=== PATIENT | male | born 2005 | race Caucasian/White ===

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

== ENCOUNTER → 2023-04-17 12:57 | Outpatient (BNVA) | payer SELFPAY | PROVIDERS: PCP Internal Medicine | DX: Z11.1 Encounter for screening for respiratory tuberculosis (principal) ==

== ENCOUNTER 2023-07-27 13:39 | Outpatient (AMB) | payer OTHER, SELFPAY ==
[2023-07-27 13:41] VITALS: BP 116/70; PULSE 61; O2SAT 97; BMI 29.4
--- NOTE | 2023-07-27 13:41 | A.OFFPC_ITS ---
Vital Signs 07/27/23 13:41 Height 6 ft 2 in Weight 229 lb BMI 29.4 BP 116/70 Blood Pressure Location Lt brachial Position Sitting Pulse 61 Pulse Source Pulse Oximeter Pulse Oximetry (%) 97 Oxygen Delivery Method Room Air Intake Visit Reasons: New patient-Establish Care Lift Truck Operator Required: No Allergies No Known Allergies [No Known Allergies*] Allergy (Verified 07/27/23 13:42) Medication List - Last Reconciled 07/27/23 by Keenan Anand MD multivitamin 1 tab PO DAILY [SEA light 1 cap PO .QD] Tobacco use date assessed: 07/27/23 Dental Screening Dental Screen Date: 07/27/23 Did you have a dental visit in the last 12 months?: Yes Did you have a dental problem in the last 6 months where you did not have access to dental care?: No Was dental information given to patient?: Patient has dentist HPI New patient-Establish Care HPI Details 18-year-old overweight male being seen f or the 1st time. Review of the notes has had an umbilical wound exploration August 2022 with no hernia found but noted extensive scar tissue. Has had a history of umbilical repair in 2019.. Had patellar tendon tear in March 2022. [facility], [facility] Medical History (Updated 07/27/23 @ 14:00 by Keenan Anand MD) COVID-19 vaccine administered No significant medical problems Umbilical hernia Surgical History History of umbilical hernia repair History of circumcision History of tonsillectomy and adenoidectomy Family History (Updated 07/27/23 @ 14:01 by Keenan Anand MD) Mother History of lymphoma Maternal Grandfather CVA (cerebral vascular accident) Maternal Aunt Alcohol abuse Social History (Updated 07/27/23 @ 14:02 by Keenan Anand MD) Are you a primary care worker to a significant other at home: No Do you presently have visiting nurse or other home services: No Alcohol intake: never Patient Tobacco Use Status: Never used Tobacco Second Hand Smoke Exposure: No Current occupational status: employed Current occupation: [employer] Cognitive needs: No Hearing needs: No Vision needs: No Questionnaire PHQ-9 Over the last 2 weeks, how often have you been bothered by any of the following problems? 1. Little interest or pleasure in doing things: not at all 2. Feeling down, depressed, or hopeless: not at all 3. Trouble falling or staying asleep, or sleeping too much: not at all 4. Feeling tired or having little energy: not at all 5. Poor appetite or overeating: not at all 6. Feeling bad about yourself - or that you are a failure or have let yourself or your family down: not at all 7. Trouble concentrating on things, such as reading the newspaper or watching television: not at all 8. Moving or speaking so slowly that other people could have noticed. Or the opposite - being so fidgety or restless that you have been moving around a lot more than usual: not at all 9. Thoughts that you would be better off or of hurting yourself in some way: not at all Total score: 0 Depression Screening Interpretation: Negative Depression Screening Done: Yes Source: Developed by Drs. Binu Landa, Aleyda Henley, Sahil Maradiaga and colleagues, with an educational maurice from [employer]. Thrive Questionnaire Date Thrive assessed: 07/27/23 I am a: Patient What is your living situation today?: I have a steady place to live Within the past 12 months, did the food you bought not last and you didn't have the money to get more?: Never true Within the past 12 months, did you worry whether your food would run out before you got money to buy more?: Never true Do you have trouble paying for medicines?: No Do you have trouble getting transportation to medical appointments?: No Do you have trouble paying your heating and electricity bill?: No Do you have trouble taking care of your child, family member or friend?: No Do you have trouble with day-to-day activities such as bathing, preparing meals, shopping, managing finances, etc.?: No Are you currently unemployed and looking for a job?: No Are you interested in more education?: No Please select the resources that you would like help with: None THRIVE Score: 0 AUDIT C Alcohol Use Questionnaire (AUDIT-C) 1. How often do you have a drink containing alcohol?: Never 3. How often do you have six or more drinks on one occasion?: Never Total Score: 0 KARSON-7 AMB Questionnaire KARSON-7 Date KARSON - 7 assessed: 07/27/23 Feeling nervous, anxious, or on edge: 0 = Not at all Not being able to stop or control worryin = Not at all Worrying too much about different things: 0 = Not at all Trouble relaxin = Not at all Being so restless that it is hard to sit still: 0 = Not at all Becoming easily annoyed or irritable: 0 = Not at all Feeling afraid as if something awful might happen: 0 = Not at all Total KARSON-7 score (0-4 normal; 5-9 mild; 10-14 moderate; 15-21 severe): 0 Source: Developed by Drs. Binu Landa, Aleyda Henley, Sahil Maradiaga and colleagues, with an educational maurice from [employer]. Physical exam (Primary Care) Vital Signs: Last Vital Signs Pulse 61 07/27/23 13:41 BP 116/70 07/27/23 13:41 Pulse Ox 97 07/27/23 13:41 Oxygen Delivery Method Room Air 07/27/23 13:41 BMI result Body Mass Index 29.4 Tobacco/Smoking Status: Tobacco use Status Tobacco use date assessed 07/27/23 07/27/23 13:43 Patient Tobacco Use Status Never used Tobacco 07/27/23 13:43 PHQ-9: PHQ-9 Score PHQ-9: Total score 0 07/27/23 13:43 Depression Screening Interpretation: Negative Thrive Assessment: Date of Thrive Assessment Date Thrive assessed 07/27/23 07/27/23 13:43 Const General: alert; No acute distress Eyes Conjunctivae: conjunctivae normal Resp Auscultation: clear to auscultation bilaterally Cardio Rate: regular rate Rhythm: regular rhythm GI Inspection: Yes normal to inspection Extrem General: Yes normal to inspection and No edema Assessment and Plan Assessment & Plan (1) Overweight (BMI 25.0-29.9): Code(s): E66.3 - Overweight Plan: diet and exercise Orders: Orders Thyroid Stimulating Hormone Today E66.3 - Overweight Vitamin B12 and Folate Today E66.3 - Overweight Complete Blood Count Auto Diff Today E66.3 - Overweight Comprehensive Met. Panel Today E66.3 - Overweight Free T4 (Free Thyroxine) Today E66.3 - Overweight Lipid Panel Today E66.3 - Overweight, E78.00 - Pure hypercholesterolemia, unspecified Coding Level of Care Code New Pt Level 4 (49311) Diagnoses Overweight (BMI 25.0-29.9) E66.3
== END 2023-07-27 16:09 | disposition home or self-care (01) ==
PROVIDERS: PCP Internal Medicine; Visit Provider Internal Medicine
DX: E66.3 Overweight (principal)
CPT/HCPCS: 99204

== ENCOUNTER 2023-07-27 14:10 | Outpatient (REF) | payer OTHER, SELFPAY ==
[2023-07-27 14:24] LABS: MANUAL DIFF FLAG NO
[2023-07-27 14:44] LABS: Basophils Absolute Auto 0.1 X10*3/uL (0.0-0.2); Basophils Percent Auto 1.2 % (0-2); Eosinophils Absolute Auto 0.1 X10*3/uL (0.0-0.4); Eosinophils Percent Auto 1.6 % (0-4); Hematocrit 40.7 % (42.0-52.0); Imm Gran Abs Auto 0.01 X10*3/uL (0.00-0.03); Imm Gran Pct Auto 0.2 % (0.0-0.4); Lymphocytes Absolute Auto 1.6 X10*3/uL (1.2-4.9); Mean Corpuscular HGB Conc 34.4 g/dl (31.0-36.0); Mean Corpuscular Hemoglobin 28.9 pg (27.0-33.0); Mean Corpuscular Volume 84.1 fL (80.0-98.0); Mean Platelet Volume 10.7 fL (9.4-12.4); Monocytes Absolute Auto 0.3 X10*3/uL (0.1-1.2); Monocytes Percent Auto 7.7 % (2-11); Neutrophils Absolute Auto 2.3 x10*3/uL (2.0-8.3); Neutrophils Percent Auto 52.3 % (45-73); Platelet Count 172 X10*3/uL (160-400); Red Blood Count 4.84 X10*6/uL (4.60-5.80); Red Cell Distribution Width 12.4 % (11.0-16.0); White Blood Count 4.3 X10*3/uL (4.8-10.8)
[2023-07-27 15:44] LABS: Alanine Aminotransferase 21 U/L (0-40); Albumin Level 4.3 g/dL (3.5-5.0); Alkaline Phosphatase 75 U/L (39-117); Anion Gap 9 (12-20); Aspartate Amino Transferase 19 U/L (5-37); Bilirubin Total 0.6 mg/dL (0.0-1.0); Blood Urea Nitrogen 19 mg/dL (9-16); Calcium 9.5 mg/dL (8.4-10.2); Carbon Dioxide 27 mmol/L (22-29); Chloride 107 mmol/L (96-108); Cholesterol 167 mg/dL (<200); Estimated Glomerular Filt Rate > 60; Glucose Random 80 mg/dL (60-115); HDL Cholesterol 37 mg/dL (>40); LDL Cholesterol Calculated 123 mg/dL (<100); Potassium 4.3 mmol/L (3.3-5.1); Sodium 139 mmol/L (135-145); Total Protein 6.7 g/dL (6.5-8.0); Triglycerides 39 mg/dL (<150)
[2023-07-27 16:00] LABS: Free T4 (Free Thyroxine) 0.98 ng/dL (0.71-1.85); Thyroid Stimulating Hormone 2.59 uIU/mL (0.32-4.0)
[2023-07-27 16:13] LABS: Folate 10.9 ng/mL (> or = 4.0); Vitamin B12 844 pg/mL (200-900)
== END 2023-07-27 14:11 | disposition home or self-care (01) ==
LOC: HO.LAB 14:10
PROVIDERS: PCP Internal Medicine; Visit Provider Internal Medicine
DX: E66.3 Overweight (principal); E78.00 Pure hypercholesterolemia, unspecified
CPT/HCPCS: 36415; 80053; 80061; 82607; 82746; 84439; 84443; 85025

== ENCOUNTER → 2024-01-07 14:05 | Outpatient (BNVA) | payer SELFPAY | PROVIDERS: PCP Internal Medicine | DX: Z02.83 Encounter for blood-alcohol and blood-drug test (principal) ==

== ENCOUNTER → 2024-01-21 12:15 | Outpatient (BNVA) | payer SELFPAY | PROVIDERS: PCP Internal Medicine | DX: R76.11 Nonspecific reaction to tuberculin skin test without active tuberculosis (principal) ==

== ENCOUNTER 2024-05-15 14:42 | Outpatient (AMB) | payer OTHER, SELFPAY ==
--- NOTE | 2024-05-15 14:54 | MHC.OFFVIS ---
Vital Signs 05/15/24 15:04 Height 6 ft 2 in Weight 219 lb BMI 28.1 BP 141/65 H Blood Pressure Location Lt brachial Position Sitting Pulse 70 Intake Visit Reasons: Hernia Intake Note: Patient is seen in office for swollen lymph nodes and a pilonidal cyst. Pt c/o:swollen lymph nodes in the neck and groin and another under the chin, and a pilonidal cyst, pain with prolonged sitting, had taking antbx in the past and now it came back, no discharge or redness surgery:08/16/2022 Licensing Officer Required: No Accompanied by: Self / Same As Patient Allergies No Known Allergies [No Known Allergies*] Allergy (Verified 05/15/24 15:04) Medication List - Last Reconciled 05/15/24 by Kenton Anderson MD multivitamin 1 tab PO DAILY [SEA light 1 cap PO .QD] HPI Comments Details: Tomasz returns today with complaints of swollen lymph nodes in his neck and bilateral groins. He feels they developed over the last several months but denies any pain, fever, chills or other associated symptoms. He denies any previous lymph node surgery. He also reports occasional swelling at the site of his pilonidal cyst and notes several divots in the skin. He denies any current pain redness or discharge. [facility] Medical History COVID-19 vaccine administered No significant medical problems Umbilical hernia Surgical History History of umbilical hernia repair History of circumcision History of tonsillectomy and adenoidectomy Family History Mother History of lymphoma Maternal Grandfather CVA (cerebral vascular accident) Maternal Aunt Alcohol abuse Social History Are you a primary hospice spiritual care coordinator to a significant other at home: No Do you presently have visiting nurse or other home services: No Alcohol intake: never Patient Tobacco Use Status: Never used Tobacco Second Hand Smoke Exposure: No Current occupational status: employed Current occupation: [employer] Cognitive needs: No Hearing needs: No Vision needs: No Physical Exam Const General: no acute distress Nutritional Appearance: well nourished Orientation/consciousness: patient oriented x3 Limitations: no limitations Neck Other: Palpable submental gland in the midline and submandibular glands bilaterally. No definite cervical adenopathy appreciated. No significant skin changes. Resp Effort & Inspection: normal respiratory effort, no audible wheezes, no cough and no respiratory distress GI Other: Palpable bilateral inguinal lymphadenopathy with multiple slightly enlarged lymph nodes measuring approximately a cm in diameter. No overlying skin changes. Nontender to palpation. Inspection: Yes normal to inspection Back/Spine/Pelvis Other: No active pilonidal disease noted at this time. No tenderness to palpation Skin Other: Warm, dry, no rashes Neuro General: patient oriented x3 Assessment & Plan Assessment & Plan (1) Lymphadenopathy, inguinal: Code(s): R59.0 - Localized enlarged lymph nodes Category: Medical Plan 18-year-old male patient presenting with bilateral inguinal lymphadenopathy. There are multiple nodes in bilateral groins which may be reactive. We discussed the various biopsy techniques including needle biopsy verses excisional biopsy. After discussion of the procedure, risks, and alternatives, he consents to excision of a right groin lymph node to be performed as a short-stay surgery. This will be performed at his earliest convenience. Coding Level of Care Code Est Pt Level 3 (64960) Diagnoses Lymphadenopathy, inguinal R59.0
[2024-05-15 15:04] VITALS: BP 141/65; PULSE 70; BMI 28.1
== END 2024-05-15 15:15 | disposition home or self-care (01) ==
PROVIDERS: PCP Internal Medicine; Visit Provider Surgery
DX: R59.0 Localized enlarged lymph nodes (principal)
CPT/HCPCS: 99213

== ENCOUNTER → 2024-05-15 14:42 | Outpatient (BNVA) | payer OTHER, SELFPAY | PROVIDERS: PCP Internal Medicine; Visit Provider Surgery ==

== ENCOUNTER 2024-06-11 10:48 | Day surgery (SDC) | payer OTHER, SELFPAY ==
[2024-06-09 11:25] VITALS: BMI 28.1
--- NOTE | 2024-06-10 13:34 | P.CONAN_ITS ---
Documented by User: Alize Tellez NP 06/10/24 13:34 HPI - Anesthesia Eval Consult details Narrative: 18yo M for Right Excision Lymph Node Groin PMFSH Active Problems Active Problems: All Active Problems Lymphadenopathy, inguinal (Acute) Overweight (BMI 25.0-29.9) (Acute) Patellar tendinitis, left knee (Acute) No known problems (Acute) Past Medical History Medical History (Updated 06/09/24 @ 11:23 by Amna Apodaca RN) No pertinent past medical history Family History Family History Mother History of lymphoma Maternal Grandfather CVA (cerebral vascular accident) Maternal Aunt Alcohol abuse Family history of problems with anesthesia: No Surgical History Surgical History (Updated 06/09/24 @ 11:23 by Amna Apodaca RN) History of umbilical hernia repair History of circumcision History of tonsillectomy and adenoidectomy History of Problems with Anesthesia: No Social History Social History Are you a primary wild animal caretaker to a significant other at home: No Do you presently have visiting nurse or other home services: No Alcohol intake: never Patient Tobacco Use Status: Never used Tobacco Second Hand Smoke Exposure: No Use of substances other than those prescribed or required for medical reasons: No Are you DNR?: No Advance Directives: No Advance Directives Information Provided: Yes Recently lost weight without trying: No Nutrition Risks: No Nutritional Risk Poor oral hygiene: No Current occupational status: employed Current occupation: [employer] Cognitive needs: No Hearing needs: No Vision needs: No Meds Allergies Allergy/AdvReac Type Severity Reaction Status Date / Time No Known Allergies Allergy Verified 05/15/24 15:04 [No Known Allergies*] Home Medications ?Medication ?Instructions ?Recorded ?Confirmed ?Last Taken ?Type SEA light 1 cap PO .QD 07/27/23 06/09/24 Unknown History multivitamin 1 tab PO DAILY 07/27/23 06/09/24 Unknown History Exam Height,Weight and Vital Signs: Height 6 ft 2 in Weight 99.337 kg Assessment and Plan Assessment Anesthesia Assessment: Chart Reviewed Final Anesthetic Review Family History of Problems with Anesthesia: No History of Problems with Anesthesia: No Documented by User: Sonya Spangler MD 06/11/24 12:33 [facility] Past Medical History Medical History (Updated 06/09/24 @ 11:23 by Amna Apodaca RN) No pertinent past medical history Family History Family History Mother History of lymphoma Maternal Grandfather CVA (cerebral vascular accident) Maternal Aunt Alcohol abuse Surgical History Surgical History (Updated 06/09/24 @ 11:23 by Amna Apodaca RN) History of umbilical hernia repair History of circumcision History of tonsillectomy and adenoidectomy Social History Social History Are you a primary wild animal caretaker to a significant other at home: No Do you presently have visiting nurse or other home services: No Alcohol intake: never Patient Tobacco Use Status: Never used Tobacco Second Hand Smoke Exposure: No Use of substances other than those prescribed or required for medical reasons: No Are you DNR?: No Advance Directives: No Advance Directives Information Provided: Yes Recently lost weight without trying: No Nutrition Risks: No Nutritional Risk Poor oral hygiene: No Current occupational status: employed Current occupation: [employer] Cognitive needs: No Hearing needs: No Vision needs: No Meds Allergies Allergy/AdvReac Type Severity Reaction Status Date / Time No Known Allergies Allergy Verified 05/15/24 15:04 [No Known Allergies*] Home Medications ?Medication ?Instructions ?Recorded ?Confirmed ?Last Taken ?Type SEA light 1 cap PO .QD 07/27/23 06/09/24 Unknown History multivitamin 1 tab PO DAILY 07/27/23 06/09/24 Unknown History Exam Airway Mallampati Class: III TM Dist: >3cm Neck ROM: Full Loose/Missing/Broken Teeth: No Heart: RRR Lungs: CTA Assessment and Plan Final Anesthetic Review NPO: Yes ASA Class: I Final Preanesthetic Review: Meds/Allgs Chart Reviewed, Consent Obtained/Reviewed and Anes Risks/Benef Reviewed Patient Risk: Low Procedure Risk: Low Anesthetic Plan Anesthetic Plan: GA Disposition: Standard PACU
[2024-06-11 10:57] VITALS: BMI 28.2
[2024-06-11 11:04] VITALS: BP 107/61; PULSE 69; RESP 16; TEMP 36.5; O2SAT 99
[2024-06-11] MEDS: Lactated Ringers 1,000 ML 100 ML IVCONT (11:20)
--- NOTE | 2024-06-11 11:37 | MHC.SHP ---
Pre-Procedural Eval Section A - 24 Hr Update-Section A only Date of Service: 06/11/24 The patient is an INPATIENT: No Changes since office visit: Yes Patient answered all questions; No Cold of Flu in the past 2 weeks, No New Medical Problems and No Changes in Medication The patient has been examined within 24 hours of the surgical procedure. The History & Physical has been completed within 30 days and I have reviewed it.: Yes Section B - Complete if H&P > 30 days Chief Complaint: Localized enlarged lymph nodes Allergies: Allergies Allergy/AdvReac Type Severity Reaction Status Date / Time No Known Allergies Allergy Verified 05/15/24 15:04 [No Known Allergies*] Plan Diagnosis/Plan: Unchanged I have reviewed the history and physical and performed a pertinent physical examination on my patient. No changes have occurred unless specified. Time Spent With Patient Time: Total time managing care of this patient today ____ minutes.
--- NOTE | 2024-06-11 14:13 | W.PM.OPN ---
Operative Note Operative Note Date of Service: 06/11/24 Narrative: Preoperative diagnosis: Right inguinal lymphadenopathy Postoperative diagnosis:same Procedure:Excision right inguinal lymph node Surgeon: Kenton Anderson MD Procurement Internship: Francine Cleveland PA-C Anesthesia: General LMA Indications for procedure: 18 yo male with multiple enlarged lymph nodes in bilateral groins of unknown etiology. Patient with no symptoms. Operative findings: Moderately enlarged lymph nodes right groin Specimen: lymph node Estimated blood loss: < 1 ml Complications: none Procedure details: Patient brought to the OR And placed in a supine position. The patient's right groin was prepped with ChloraPrep and draped in a sterile fashion. A surgical time-out was called the consent confirmed. Patient received preoperative antibiotics and Venodyne boots were in place. Local anesthesia was infiltrated over the palpable node and an incision made with a 15 blade. The incision was carried down to the subcutaneous tissue, past anthony's fascia and up to the enlarged lymph node. This was grasped with an Allis clamp. Electrocautery was used to dissect the lesion from the surrounding tissue. Hemostasis was assured with electrocautery. The node was passed off the table and sent to pathology for further examination. Deep fascia was closed with 3-0 polysorb; dermis was closed with 3-0 Polysorb. Skin was closed with a running subcuticular 4-0 Polysorb suture. Sterile dressings consisting of steristrips, 2x2 gauze, and tegaderm were then applied. The patient tolerated the procedure well. Sponge, instrument, and needle counts were reported as correct. He was transported to PACU in stable condition.
[2024-06-11 14:17] VITALS: BP 144/55; PULSE 72; RESP 18; TEMP 36.2; O2SAT 100
[2024-06-11 14:22] VITALS: BP 140/70; PULSE 93; RESP 17; O2SAT 100
[2024-06-11 14:27] VITALS: BP 160/82; PULSE 80; RESP 17; O2SAT 99
[2024-06-11 14:32] VITALS: BP 140/72; PULSE 77; RESP 17; O2SAT 100
[2024-06-11 14:52] VITALS: BP 141/67; PULSE 70; RESP 17; TEMP 36.3; O2SAT 100
== END 2024-06-11 15:15 | disposition home or self-care (01) ==
PROVIDERS: Pathology Anatomic Pathology & Clinical Pathology; PCP Internal Medicine; Visit Provider Surgery
PROC: (CPT 38500; principal; 2024-06-11 13:00)
DX: R59.0 Localized enlarged lymph nodes (principal); Z79.899 Other long term (current) drug therapy; Z98.890 Other specified postprocedural states
CPT/HCPCS: 38531; 88184; 88185; 88305; 88341; 88342; C9088; J0690; J2003; J2250; J2704; J2795; J3010

== ENCOUNTER → 2024-06-11 10:48 | Outpatient (BNV) | payer OTHER, SELFPAY | PROVIDERS: PCP Internal Medicine; Visit Provider Surgery | DX: R59.0 Localized enlarged lymph nodes (principal) | CPT/HCPCS: 38531 ==

== ENCOUNTER 2024-06-17 10:31 | Outpatient (AMB) | payer OTHER, SELFPAY ==
--- NOTE | 2024-06-17 10:34 | MHC.OFFVIS ---
Vital Signs 06/17/24 10:38 Height 6 ft 2 in Weight 225 lb 4.999 oz BMI 28.9 Respiration 16 Pulse 72 Intake Visit Reasons: Excision Lymph Node Intake Note: Patient is seen in office for post op assessment post excision of right inguinal lymph node. Pt c/o: denies any concerns, here for results [place] Required: No Accompanied by: Self / Same As Patient Allergies No Known Allergies [No Known Allergies*] Allergy (Verified 06/17/24 10:39) HPI Comments Details: 18-year-old male patient returning 1 week following a right inguinal lymph node biopsy. Pathology revealed a benign reactive lymph node. He tolerated the procedure well and denies any ongoing symptoms. He does note some swelling at the incision. [facility] Medical History No pertinent past medical history Surgical History History of lymph node excision (06/11/24) History of umbilical hernia repair History of circumcision History of tonsillectomy and adenoidectomy Family History Mother History of lymphoma Maternal Grandfather CVA (cerebral vascular accident) Maternal Aunt Alcohol abuse Social History Are you a primary youth care professional to a significant other at home: No Do you presently have visiting nurse or other home services: No Alcohol intake: never Patient Tobacco Use Status: Never used Tobacco Second Hand Smoke Exposure: No Current occupational status: employed Current occupation: [employer] Cognitive needs: No Hearing needs: No Vision needs: No Physical Exam Vital Signs: Last Vital Signs Pulse 72 06/17/24 10:38 Resp 16 06/17/24 10:38 BMI result Body Mass Index 28.9 Const General: comfortable Nutritional Appearance: well nourished Orientation/consciousness: patient oriented x3 Resp Effort & Inspection: normal respiratory effort GI Other: Well-healed incision with a small seroma located below the incision. There is no redness or discharge appreciated. Neuro General: patient oriented x3 Extrem General: Yes no clubbing, cyanosis or edema Assessment & Plan Assessment & Plan (1) Lymphadenopathy, inguinal: Comment: Right inguinal node excision June 2024 Code(s): R59.0 - Localized enlarged lymph nodes Category: Medical Plan Patient returns 1 week following a right inguinal lymph node biopsy. He tolerated the procedure well and his wounds are healing nicely. Pathology revealed a benign reactive lymph node. He should follow up as needed. Coding Level of Care Code Global (44361) Diagnoses Lymphadenopathy, inguinal R59.0
[2024-06-17 10:38] VITALS: PULSE 72; RESP 16; BMI 28.9
== END 2024-06-17 10:51 | disposition home or self-care (01) ==
PROVIDERS: PCP Internal Medicine; Visit Provider Surgery
DX: R59.0 Localized enlarged lymph nodes (principal)
CPT/HCPCS: 99024

== ENCOUNTER 2024-08-22 08:26 | Outpatient (REF) | payer OTHER, SELFPAY ==
[2024-08-22 09:30] LABS: MANUAL DIFF FLAG NO
[2024-08-22 10:29] LABS: Eosinophils Absolute Auto 0.1 X10*3/uL (0.0-0.4); Eosinophils Percent Auto 2.8 % (0-4); Hematocrit 41.5 % (42.0-52.0); Hemoglobin 14.3 g/dl (14.0-18.0); Imm Gran Abs Auto 0.01 X10*3/uL (0.00-0.03); Imm Gran Pct Auto 0.3 % (0.0-0.4); Lymphocytes Absolute Auto 1.4 X10*3/uL (1.2-4.9); Lymphocytes Percent Auto 36.8 % (20-40); Mean Corpuscular HGB Conc 34.5 g/dl (31.0-36.0); Mean Corpuscular Hemoglobin 29.5 pg (27.0-33.0); Mean Corpuscular Volume 85.6 fL (80.0-98.0); Mean Platelet Volume 10.6 fL (9.4-12.4); Monocytes Absolute Auto 0.3 X10*3/uL (0.1-1.2); Monocytes Percent Auto 8.8 % (2-11); Neutrophils Absolute Auto 1.9 x10*3/uL (2.0-8.3); Neutrophils Percent Auto 50.3 % (45-73); Platelet Count 182 X10*3/uL (160-400); Red Blood Count 4.85 X10*6/uL (4.60-5.80); Red Cell Distribution Width 12.7 % (11.0-16.0); White Blood Count 3.9 X10*3/uL (4.8-10.8)
[2024-08-22 11:20] LABS: Alanine Aminotransferase 32 U/L (0-40); Albumin Level 4.2 g/dL (3.5-5.0); Alkaline Phosphatase 58 U/L (39-117); Anion Gap 7 (12-20); Aspartate Amino Transferase 19 U/L (5-37); Bilirubin Total 0.4 mg/dL (0.0-1.0); Blood Urea Nitrogen 18 mg/dL (9-16); Calcium 9.3 mg/dL (8.4-10.2); Carbon Dioxide 28 mmol/L (22-29); Chloride 110 mmol/L (96-108); Cholesterol 163 mg/dL (<200); Estimated Glomerular Filt Rate > 60; Glucose Fasting 81 mg/dL (60-99); HDL Cholesterol 46 mg/dL (>40); LDL Cholesterol Calculated 107 mg/dL (<100); Potassium 4.3 mmol/L (3.3-5.1); Sodium 141 mmol/L (135-145); TSH reflex Free T4 2.61 uIU/mL (0.32-4.0); Total Protein 6.8 g/dL (6.5-8.0); Triglycerides 50 mg/dL (<150)
[2024-08-22 14:54] LABS: Appearance Urine Clear; Color Urine Yellow; Glucose Urine UA Negative (Negative); Leukocyte Esterase Urine Negative (Negative); Nitrite Urine Negative (Negative); PH 5.5 (5.0-9.0); Specific Gravity - Urine >= 1.030 (1.005-1.025); UMIC TRIGGER UACC YES; Urine Blood Negative (Negative); Urine Ketones Negative (Negative); Urine Protein 300 (3+) mg/dL (Neg-Trace)
[2024-08-22 15:01] LABS: Bacteria Urine None Seen (None Seen); Calcium Oxalate Crystals Urine Present; Hyaline Casts Urine 0-2 /LPF (0-2); RBC Urine 0-2 /HPF (0-2); Squamous Epithelial Cell Urine 0-2 /HPF (0-2); WBC Urine 0-5 /HPF (0-5)
== END 2024-08-22 08:27 | disposition home or self-care (01) ==
LOC: HO.LAB 08:26
PROVIDERS: PCP Internal Medicine
DX: Z00.00 Encounter for general adult medical examination without abnormal findings (principal); R21 Rash and other nonspecific skin eruption; E66.3 Overweight; Z68.27 Body mass index [BMI] 27.0-27.9, adult
CPT/HCPCS: 36415; 80053; 80061; 81001; 81003; 84443; 85025; 96127

== ENCOUNTER 2024-08-22 08:26 | Outpatient (AMB) | payer OTHER, SELFPAY ==
[2024-08-22 08:28] VITALS: BP 110/68; PULSE 62; TEMP 36.5; O2SAT 95; BMI 27.2
--- NOTE | 2024-08-22 08:28 | A.OFFPC_ITS ---
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 Accompanied by: Self / Same As Patient Allergies No Known Allergies [No Known Allergies*] Allergy (Verified 08/22/24 08:31) Medication List - Last Reconciled 08/22/24 by DAYDAY Doan glutamine (L-Glutamine) 500 mg PO DAILY multivitamin 1 tab PO DAILY omega 3-uhv-tev-fish oil-krill 339 mg-314 mg- 500 mg caps PO [SEA light 1 cap PO .QD] Tobacco use date assessed: 08/22/24 Dental Screening Dental Screen Date: 08/22/24 Did you have a dental visit in the last 12 months?: Yes Did you have a dental problem in the last 6 months where you did not have access to dental care?: No Was dental information given to patient?: Patient has dentist HPI Annual Pe 2 HPI0 Details The patient is a 19-year-old male was presenting for annual physical 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 and is up-to-date on all his immunizations Dentist: up to date Eye: not in a while-recommended Snellen: Right: Left: Corrected vision:n/a STI screening: Colonoscopy: Pap Smer: PHQ-9: Flu: up to date COVID: x2 Tdap: up to date Diet:regular Exercise: workout everyday reports bumps on his penis-that are skin color and at times they get red reports that he has been test 3 times in the past 6 months and all came back negative reports that he does not have any symptoms 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 The patient reports that he has been checked multiple times of STDs except HSV and he would like to be checked Patient denies any chest pain, shortness of breath, heart palpitation or dizziness He denies any abdominal pain or change in bowel habits Patient denies dysuria, urinary frequency, hematuria, or penile discharge PFSH Medical History No pertinent past medical history Surgical History History of lymph node excision (06/11/24) History of umbilical hernia repair History of circumcision History of tonsillectomy and adenoidectomy Family History Mother History of lymphoma Maternal Grandfather CVA (cerebral vascular accident) Maternal Aunt Alcohol abuse Social History Housing: House Are you a primary intensive care medicine specialist to a significant other at home: No Do you presently have visiting nurse or other home services: No Alcohol intake: never Patient Tobacco Use Status: Never used Tobacco Second Hand Smoke Exposure: No Current occupational status: employed Current occupation: [employer] Cognitive needs: No Hearing needs: No Vision needs: No Questionnaire PHQ-9 Over the last 2 weeks, how often have you been bothered by any of the following problems? 1. Little interest or pleasure in doing things: not at all 2. Feeling down, depressed, or hopeless: not at all 3. Trouble falling or staying asleep, or sleeping too much: not at all 4. Feeling tired or having little energy: not at all 5. Poor appetite or overeating: not at all 6. Feeling bad about yourself - or that you are a failure or have let yourself or your family down: not at all 7. Trouble concentrating on things, such as reading the newspaper or watching television: not at all 8. Moving or speaking so slowly that other people could have noticed. Or the opposite - being so fidgety or restless that you have been moving around a lot more than usual: not at all 9. Thoughts that you would be better off or of hurting yourself in some way: not at all Total score: 0 Depression Screening Interpretation: Negative Depression Screening Done: Yes 57977 - PHQ-9 Billing: Yes Source: Developed by Drs. Binu Landa, Aleyda Henley, Sahil Maradiaga and colleagues, with an educational maurice from [employer]. Thrive Questionnaire Date Thrive assessed: 08/22/24 I am a: Patient What is your living situation today?: I have a steady place to live Within the past 12 months, did the food you bought not last and you didn't have the money to get more?: Never true Within the past 12 months, did you worry whether your food would run out before you got money to buy more?: Never true Do you have trouble paying for medicines?: No Do you have trouble getting transportation to medical appointments?: No Do you have trouble paying your heating and electricity bill?: No Do you have trouble taking care of your child, family member or friend?: No Do you have trouble with day-to-day activities such as bathing, preparing meals, shopping, managing finances, etc.?: No Are you currently unemployed and looking for a job?: No Are you interested in more education?: No Please select the resources that you would like help with: None Currently or been in a relationship where the following occur: No concerns reported THRIVE Score: 0 AUDIT C Alcohol Use Questionnaire (AUDIT-C) 1. How often do you have a drink containing alcohol?: Never 3. How often do you have six or more drinks on one occasion?: Never Total Score: 0 KARSON-7 AMB Questionnaire KARSON-7 Date KARSON - 7 assessed: 08/22/24 Feeling nervous, anxious, or on edge: 0 = Not at all Not being able to stop or control worryin = Not at all Worrying too much about different things: 0 = Not at all Trouble relaxin = Not at all Being so restless that it is hard to sit still: 0 = Not at all Becoming easily annoyed or irritable: 0 = Not at all Feeling afraid as if something awful might happen: 0 = Not at all Total KARSON-7 score (0-4 normal; 5-9 mild; 10-14 moderate; 15-21 severe): 0 Source: Developed by Drs. Binu Landa, Aleyda Henley, Sahil Maradiaga and colleagues, with an educational maurice from [employer]. KARSON-7 Assessment Billing KARSON-7 Assessment Tool: KARSON-7 Assessment 41243 Review of Systems Const Denies headache(s) Eyes Denies loss of vision ENT Denies vertigo, Denies dizziness, Denies headache(s) and Denies sore throat Card Denies chest pain, Denies leg edema and Denies lightheadedness Resp Denies cough, Denies hemoptysis and Denies wheezing GI Denies abdominal pain, Denies melena, Denies constipation, Denies diarrhea and Denies vomiting Reports genital lesions (multiple small skin colored bumps), Denies dysuria, Denies urinary frequency and Denies urinary urgency Musc Denies arthralgias, Denies joint swelling, Denies numbness and Denies tingling Neuro Denies Abnormal speech present, Denies behavioral changes, Denies vertigo, Denies dizziness, Denies headache(s), Denies loss of vision, Denies memory loss, Denies numbness and Denies tingling Psych Denies anxiety, Denies behavioral changes, Denies depression, Denies memory loss and Denies panic attacks Shailesh/Lymph Denies easy bleeding and Denies easy bruising Aller/Immun Denies wheezing Physical exam (Primary Care) Vital Signs: Last Vital Signs Pulse 49 L 08/22/24 08:28 BP 110/68 08/22/24 08:28 Pulse Ox 95 08/22/24 08:28 Oxygen Delivery Method Room Air 08/22/24 08:28 BMI result Body Mass Index 27.2 Tobacco/Smoking Status: Tobacco use Status Tobacco use date assessed 08/22/24 08/22/24 08:35 Patient Tobacco Use Status Never used Tobacco 08/22/24 08:35 PHQ-9: PHQ-9 Score PHQ-9: Total score 0 08/22/24 08:35 Depression Screening Interpretation: Negative Thrive Assessment: Date of Thrive Assessment Date Thrive assessed 08/22/24 08/22/24 08:35 Currently or been in a relationship where the following occur: No concerns reported Const General: healthy appearing, no acute distress, alert and awake Nutritional Appearance: well nourished Orientation/consciousness: oriented to person, oriented to place and oriented to time HENMN Ears: TM's normal bilaterally General nose exam: Normal nasal mucous membranes and turbinates present Eyes Conjunctivae: conjunctivae normal Sclerae: sclerae normal Pupils: Equal, round and reactive pupils present Neck Neck: Yes no lymphadenopathy and Yes no JVD Thyroid: Thyroid normal Carotids: no bruits Resp Effort & Inspection: normal respiratory effort and not tachypneic Auscultation: no crackles, no rales, no rhonchi and no wheezes Cardio Rate: regular rate Rhythm: regular rhythm Heart sounds: no murmurs and normal S1 and S2 GI Palpation (GI): Soft to palpation, nontender, no hepatomegaly and no splenomegaly Auscultation: normal bowel sounds General: Yes no CVA tenderness Penis: papules (skin colored multiple-consistent with pearly penile papule) Male genitals images: 2 1. multiple skin colored papules: consistent with pearly penile papules Back/Spine/Pelvis Back: no CVA tenderness Skin General skin exam: no rashes or lesions noted and dry skin Neuro General: oriented to person, oriented to place and oriented to time Cranial nerves: Yes Equal, round and reactive pupils present Speech: No Abnormal speech present Gait exam (Neuro): Normal gait present Motor exam (neuro): no tremor noted Deep tendon reflexes (DTR's): Left brachioradialis reflex intensity grade: 2+ and Right patellar reflex intensity grade: 1+ Extrem Right upper extremity: full ROM Left upper extremity: full ROM Right lower extremity: full ROM; no edema Left lower extremity: full ROM; no edema Psych Mental Status: mental status grossly normal Speech and movement: Normal speech and movement present Affect: normal affect Attitude: cooperative Thought process: Normal thought process present Coding Level of Care Code Est Pt Prev Care 18-39y([id number]) Diagnoses Annual physical exam Z00.00 Overweight (BMI 25.0-29.9) E66.3 Penile rash R21 Additional Codes KARSON-7 Assessment Billing - KARSON-7 Assessment Tool: KARSON-7 Assessment 75340 ([id number]) PHQ-9 - 43487 - PHQ-9 Billing: Yes ([id number]) Time Spent (min) 33 Assessment & Plan Assessment & Plan (1) Annual physical exam: Code(s): Z00.00 - Encounter for general adult medical examination without abnormal findings Category: Medical Plan: Preventative guidelines reviewed with patient. No recent labs to be reviewed. Labs ordered for patient to do as soon as possible. Patient is up-to-date on immunization (2) Overweight (BMI 25.0-29.9): Code(s): E66.3 - Overweight Category: Medical Plan: Encouraged to exercise for at least 30 minutes a day/5 days a week Healthy eating discussed. Encouraged to eat fruits/vegetables, protein- fish/baked chicken, and to avoid salty/fried foods, sweets, caffeine and carbohydrates. 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 Panel Fast Today E66.3 - Overweight, R21 - Rash and other nonspecific skin eruption, Z00.00 - Encounter for general adult medical examination without abnormal findings UA CC w/rflx Micro + Cult Today E66.3 - Overweight, R21 - Rash and other nonspecific skin eruption, Z00.00 - Encounter for general adult medical examination without abnormal findings HSV I and II,IHC Today E66.3 - Overweight, R21 - Rash and other nonspecific skin eruption, Z00.00 - Encounter for general adult medical examination without abnormal findings Complete Blood Count Auto Diff Today E66.3 - Overweight, R21 - Rash and other nonspecific skin eruption, Z00.00 - Encounter for general adult medical examination without abnormal findings TSH reflex Free T4 Today E66.3 - Overweight, R21 - Rash and other nonspecific skin eruption, Z00.00 - Encounter for general adult medical examination without abnormal findings Lipid Panel Today Z00.00 - Encounter for general adult medical examination without abnormal findings
== END 2024-08-22 09:45 | disposition home or self-care (01) ==
LOC: HO.HMCH 08:27
PROVIDERS: PCP Internal Medicine
DX: Z00.00 Encounter for general adult medical examination without abnormal findings (principal); E66.3 Overweight; R21 Rash and other nonspecific skin eruption

== ENCOUNTER 2024-09-04 12:02 | Outpatient (REF) | payer OTHER, SELFPAY ==
[2024-09-04 13:09] LABS: Appearance Urine Clear; Color Urine Dark Yellow; Glucose Urine UA Negative (Negative); Leukocyte Esterase Urine Negative (Negative); Nitrite Urine Negative (Negative); PH 5.5 (5.0-9.0); Specific Gravity - Urine >= 1.030 (1.005-1.025); UMIC TRIGGER UACC YES; Urine Blood Negative (Negative); Urine Ketones Trace mg/dL (Negative); Urine Protein 100 (2+) mg/dL (Neg-Trace)
[2024-09-04 13:18] LABS: Bacteria Urine None Seen (None Seen); Hyaline Casts Urine 0-2 /LPF (0-2); RBC Urine 0-2 /HPF (0-2); Squamous Epithelial Cell Urine 0-2 /HPF (0-2); WBC Urine 0-5 /HPF (0-5)
[2024-09-04 14:27] LABS: HBS Num1 296.97 mIU/mL (0-7.99); HBc Num1 0.13 S/CO (0.00-0.79); HBsAGNum1 0.47 S/CO (0.00-0.99); HIV AB/AG Nonreactive (Nonreactive); HIV Num 1 0.07 S/CO (0.00-0.99); Hepatitis B Core Antibody Nonreactive (Nonreactive); Hepatitis B Surface Antigen Negative (Negative); ~HepC Num1 0.19 S/CO (0.00-0.79); ~Hepatitis B Surface Antibody REACTIVE (Nonreactive); ~Hepatitis C Antibody Nonreactive (Nonreactive)
[2024-09-04 14:29] LABS: Syphilis Screen Nonreactive (Nonreactive)
[2024-09-04 15:29] LABS: CT PCR NOT DETECTED (Not Detect.); NG PCR NOT DETECTED (Not Detect.)
[2024-09-05 22:19] LABS: Herpes Simplex Type 1 IgG <0.90 index; Herpes Simplex Type 2 IgG <0.90 index
== END 2024-09-04 12:03 | disposition home or self-care (01) ==
LOC: HO.LAB 12:02
PROVIDERS: Internal Medicine
DX: Z00.00 Encounter for general adult medical examination without abnormal findings (principal); R59.0 Localized enlarged lymph nodes; R79.89 Other specified abnormal findings of blood chemistry; R21 Rash and other nonspecific skin eruption
CPT/HCPCS: 36415; 81001; 86695; 86696; 86704; 86706; 86780; 86803; 87340; 87389; 87491; 87591